=== PATIENT | female | born 1970 | race Hispanic/Latino ===

== ENCOUNTER 2016-12-02 06:12 | Inpatient (IN) | payer BC, OTHER ==
[2016-12-01 10:03] VITALS: BMI 24.9
[2016-12-02] MEDS ORDERED: Lactated Ringer's 1,000 ML IV ONE ×5 (06:53→09:25)
[2016-12-02 07:06] LABS: HEMATOCRIT 37.2 % (34.0-47.0); MEAN CELL VOLUME 92.8 fl (81.0-99.0); MEAN CORPUSCULAR HEMOGLOBIN 31.2 pg (27.0-31.0); MEAN CORPUSCULAR HGB CONC 33.6 g/dL (33.0-37.0); RED CELL DISTRIBUTION WIDTH 13.8 % (11.5-14.5); WHITE BLOOD COUNT 5.6 K/uL (4.8-10.8)
[2016-12-02] MEDS ORDERED: Propofol 10 mg/ml Inj (20 ML) ONE (07:17)
[2016-12-02] MEDS ORDERED: Succinylcholine 200 mg/10 ml Inj IV ONE (07:17)
[2016-12-02] MEDS ORDERED: Rocuronium 10 mg/ml (5 ml) ONE ×2 (07:17→09:36)
[2016-12-02] MEDS ORDERED: ePHEDrine 50 mg/ml Inj ONE (07:24)
[2016-12-02 07:27] LABS: BLOOD UREA NITROGEN 13 mg/dl (7-17); CARBON DIOXIDE 26 mmol/L (22-30); CHLORIDE 104 mmol/L (98-107); GFR AFRICAN-AMERICAN > 60; GLUCOSE,RANDOM 95 mg/dL (65-105); POTASSIUM 3.5 MMOL/L (3.6-5.0); SODIUM 142 mmol/l (132-148)
[2016-12-02] MEDS ORDERED: Midazolam 2 MG/2 ML VIAL ONE (08:26)
[2016-12-02] MEDS: Bupivacaine 0.5% Inj(30mL) ONE ×2 (08:51→09:20)
[2016-12-02] MEDS ORDERED: Desflurane Inhalation Anesthetic Liq (240 ml) ONE (09:35)
[2016-12-02] MEDS ORDERED: Neostigmine Methylsulfate 3mg/3ml Syringe IV ONE (09:36)
[2016-12-02] MEDS ORDERED: Neostigmine Methylsulfate 2 MG/2 ML ML IV ONE (09:36)
[2016-12-02] MEDS ORDERED: Dexamethasone 4 mg/1 ml ONE (09:40)
[2016-12-02] MEDS ORDERED: Sodium Chloride 0.9% 1,000 ML IV ONE (10:00)
[2016-12-02] MEDS ORDERED: Naloxone 0.4 mg/ml Inj (Adult) IVP PRN (13:14)
[2016-12-02] MEDS ORDERED: HYDROmorphone 0.5 mg/0.5 ml ISec ONE (13:28)
[2016-12-02] MEDS: HYDROmorphone 0.5 mg/0.5 ml ISec IVP PRN ×4 (13:28→14:25)
[2016-12-02] MEDS ORDERED: ceFAZolin 1 GM in Sodium Chloride 0.9% 100 ML IVPB SCH (14:15)
[2016-12-02] MEDS: ceFAZolin 1 GM in Sodium Chloride 0.9% 100 ML IVPB SCH (16:52)
[2016-12-03] MEDS: ceFAZolin 1 GM in Sodium Chloride 0.9% 100 ML IVPB SCH ×2 (01:07→10:00)
[2016-12-03] MEDS: Sodium Chloride 0.9% 1,000 ML IV SCH ×2 (06:14→18:56)
[2016-12-03 08:11] LABS: MEAN CELL VOLUME 92.8 fl (81.0-99.0); MEAN CORPUSCULAR HGB CONC 33.4 g/dL (33.0-37.0); RED CELL DISTRIBUTION WIDTH 13.7 % (11.5-14.5)
[2016-12-03 08:12] LABS: BLOOD UREA NITROGEN 8 mg/dl (7-17); CARBON DIOXIDE 27 mmol/L (22-30); CHLORIDE 108 mmol/L (98-107); GFR AFRICAN-AMERICAN > 60; GLUCOSE,RANDOM 92 mg/dL (65-105); POTASSIUM 3.7 MMOL/L (3.6-5.0); SODIUM 140 mmol/l (132-148)
[2016-12-03] MEDS: Multivitamin With Minerals Tab PO SCH (10:15)
[2016-12-03] MEDS: Enoxaparin 40 mg Syringe SC SCH (12:15)
[2016-12-03] MEDS: Oxycodone/Acetaminophen 5/325 mg Tab PO PRN ×2 (15:39→20:25)
--- NOTE | 2016-12-03 19:29 | CP.PCM.PN ---
Subjective - Date & Time of Evaluation Date of Evaluation: 12/03/16 Time of Evaluation: 13:30 - Subjective Subjective: Follow up for Dr. Dubose Patient with at bedside. Complaining of mild headache and dizziness when she sits up. She was out of bed earlier and voided. Denies passing gas, but says her stomach is growling. Denies CP/SOB/dizziness/n/v. Objective - Vital Signs/Intake and Output Vital Signs (last 24 hours): Temp Pulse Resp BP Pulse Ox 99 F 86 20 103/58 L 98 12/03/16 17:00 12/03/16 17:00 12/03/16 17:00 12/03/16 17:00 12/03/16 17:00 Intake and Output: 12/03/16 12/04/16 18:59 06:59 Output Total 1850 Balance -1850 - Medications Medications: Current Medications Enoxaparin Sodium (Lovenox) 40 mg SC Q24H [facility] PRN Reason: Protocol Last Admin: 12/03/16 12:15 Dose: 40 mg Hydromorphone HCl (Dilaudid) 0.5 mg IVP Q4H PRN PRN Reason: Pain, moderate (4-7) Sodium Chloride (Sodium Chloride 0.9%) 1,000 mls @ 80 mls/hr IV .[id number] [facility] Last Admin: 12/03/16 18:56 Dose: 80 mls/hr Multivitamins/Minerals (Therapeutic-M Tab) 1 tab PO DAILY [facility] Last Admin: 12/03/16 10:15 Dose: 1 tab Naloxone HCl (Narcan) 0.1 mg IVP Q2M PRN PRN Reason: Shortness of Breath Ondansetron HCl (Zofran Inj) 4 mg IVP Q8 PRN PRN Reason: Nausea/Vomiting Oxycodone/Acetaminophen (Percocet 5/325 Mg Tab) 2 tab PO Q4 PRN PRN Reason: Pain, Mild (1-3) Stop: 12/06/16 13:37 Last Admin: 12/03/16 15:39 Dose: 2 tab - Labs Labs: 12/03/16 07:46 12/03/16 07:46 - Respiratory Exam Respiratory Exam: NORMAL BREATHING PATTERN - GI/Abdominal Exam GI & Abdominal Exam: Distended, Soft, Tenderness, Hypoactive Bowel Sounds Additional comments: no drainage, no erythema Assessment and Plan (1) Chronic pelvic pain in female Assessment & Plan: POD#1 s/p robotic assisted hysterectomy, resection of bowel adhesions, endometrosis -liquid diet at this time -encourage PO intake -cont IV fluids -labs in am -encourage OOB -venodynes/lovenox for VTE proph -IS -pain medication, will d/c quality audit representative and add prn medications -d/w Dr. Dubose, agrees with above Status: Acute
[2016-12-04] MEDS: Oxycodone/Acetaminophen 5/325 mg Tab PO PRN ×3 (01:19→12:20)
[2016-12-04] MEDS: Sodium Chloride 0.9% 1,000 ML IV SCH (06:23)
[2016-12-04 07:11] LABS: MEAN CORPUSCULAR HEMOGLOBIN 31.8 pg (27.0-31.0); MEAN CORPUSCULAR HGB CONC 34.2 g/dL (33.0-37.0); RED CELL DISTRIBUTION WIDTH 13.5 % (11.5-14.5); WHITE BLOOD COUNT 3.9 K/uL (4.8-10.8)
[2016-12-04 07:16] LABS: BLOOD UREA NITROGEN 6 mg/dl (7-17); CALCIUM 8.1 mg/dL (8.4-10.2); CARBON DIOXIDE 29 mmol/L (22-30); CHLORIDE 108 mmol/L (98-107); GFR AFRICAN-AMERICAN > 60; GLUCOSE,RANDOM 90 mg/dL (65-105); POTASSIUM 3.6 MMOL/L (3.6-5.0); SODIUM 143 mmol/l (132-148)
[2016-12-04] MEDS: Multivitamin With Minerals Tab PO SCH (09:28)
--- NOTE | 2016-12-04 09:37 | CP.PCM.PN ---
Subjective - Date & Time of Evaluation Date of Evaluation: 12/04/16 Time of Evaluation: 09:34 - Subjective Subjective: pod # 2 taking po positive flatus Objective - Vital Signs/Intake and Output Vital Signs (last 24 hours): Temp Pulse Resp BP Pulse Ox 99.4 F 76 18 102/63 97 12/04/16 05:00 12/04/16 05:00 12/04/16 05:00 12/04/16 05:00 12/04/16 05:00 - Medications Medications: Current Medications Enoxaparin Sodium (Lovenox) 40 mg SC Q24H [facility] PRN Reason: Protocol Last Admin: 12/03/16 12:15 Dose: 40 mg Hydromorphone HCl (Dilaudid) 0.5 mg IVP Q4H PRN PRN Reason: Pain, moderate (4-7) Sodium Chloride (Sodium Chloride 0.9%) 1,000 mls @ 80 mls/hr IV .[id number] [facility] Last Admin: 12/04/16 06:23 Dose: 80 mls/hr Multivitamins/Minerals (Therapeutic-M Tab) 1 tab PO DAILY [facility] Last Admin: 12/04/16 09:28 Dose: 1 tab Naloxone HCl (Narcan) 0.1 mg IVP Q2M PRN PRN Reason: Shortness of Breath Ondansetron HCl (Zofran Inj) 4 mg IVP Q8 PRN PRN Reason: Nausea/Vomiting Oxycodone/Acetaminophen (Percocet 5/325 Mg Tab) 2 tab PO Q4 PRN PRN Reason: Pain, Mild (1-3) Stop: 12/06/16 13:37 Last Admin: 12/04/16 06:28 Dose: 2 tab - Labs Labs: 12/04/16 05:30 12/04/16 05:30 - GI/Abdominal Exam GI & Abdominal Exam: Soft, Normal Bowel Sounds Assessment and Plan - Assessment and Plan (Free Text) Assessment: doing well post op day 2 Plan: will discharge home
[2016-12-04 10:12] VITALS: BP 105/66; PULSE 87; RESP 16; TEMP 98.2; O2SAT 98
[2016-12-04] MEDS: Enoxaparin 40 mg Syringe SC SCH (12:22)
--- NOTE | 2016-12-07 22:24 | OP ---
PROCEDURE DATE: 12/02/2016 SURGEON: Hadley Dubose MD. ABRADING MACHINE TENDER: Manuel Jefferson MD. PREOPERATIVE DIAGNOSES: Pelvic pain, dysmenorrhea, dyspareunia, bladder pain, and adenomyosis of the uterus. POSTOPERATIVE DIAGNOSES: Pelvic pain, dysmenorrhea, dyspareunia, bladder pain, adenomyosis of the uterus, stage IV endometriosis of the pelvis, and extensive pelvic adhesions. PROCEDURE PERFORMED: Cystoscopy with bilateral ureteral catheterization and injection of dye, robotic da Ally laparoscopy, excision of endometriosis, bilateral ureterolysis, robotic total hysterectomy, and left salpingectomy. TYPE OF ANESTHESIA: Endotracheal. COMPLICATIONS: None. SPECIMEN: Multiple samples containing the uterus, the tube, and endometriosis sent to Pathology. Dr. Jefferson also will dictate separately the extensive lysis of adhesions and excision of rectal endometriosis performed on the patient. INDICATION FOR THE PROCEDURE: The patient is a 46-year-old with a long history of severe pelvic pain and known endometriosis. She had a prior history of abdominal surgery for removal of an ovary and she was known to have a frozen pelvis, which was confirmed by multiple examinations as well as my examination in the visit as well as ultrasound. Due to the complex nature of the surgery, the patient was advised with regards to the risks and benefits of the operation and with the necessity to place ureteral stents and using fluorescence to identify the ureters throughout this complex procedure. The patient was advised also with risks with regards to adhesions and she signed the consent and was taken to the OR. DESCRIPTION OF THE PROCEDURE: After adequate anesthesia was obtained, patient was placed in the dorsal lithotomy position. She was prepped and draped, the surgeons were gowned and gloved. The patient was padded all over to prevent any form of pressure in any area. At this point, a timeout was taken according to hospital policy and attention was on the vaginal area. Under direct visualization, a cystoscope was inserted into the bladder. A pancystoscopy was performed and the attention was paid to both ureteral orifices, which were in the normal anatomical position. The left ureteral orifice was then catheterized with a 5-Finnish open ended ureteral catheter. A solution of IC-Green was then injected for a total of 4 mL into the left ureter, after ureteral catheter was advanced into the distal ureter. The ureteral catheter was then removed. Attention was then paid to the right ureteral orifice, at which point a ureteral catheter was advanced to the distal level of the right ureter. An additional 5 mL of IC-Green were injected into the right ureter. The ureteral catheter was then removed. The bladder was inspected and noted to be free of tumor, stones, or bleeding sources. The cystoscope was then removed and a 16-Finnish Field catheter was placed. At this point, attention was in the vaginal area where a V-care was placed inside the uterus and the balloon inflated. Surgeons were then regowned and regloved and attention was on the abdomen. At this point, the abdominal cavity was entered in the umbilical area, utilizing an open laparoscopic technique. Once the abdominal cavity was entered in a blunt fashion, a blunt trochar was placed. The abdomen was insufflated and the pelvis was visualized. There appeared to be massive adhesions involving the uterus and the left ovary on the left hand side. The anterior part of the uterus appeared to be free of adhesions or endometriosis. The patient had evidence of extensive fibrotic endometriosis type disease and the uterus was in the retroversal flexed position. At this point, under direct visualization, 3 additional ports were placed, left lower quadrant, left mid quadrant, right mid quadrant, and right upper quadrant. At this point, the da Ally robot was docked and the procedure was started. Given the extensiveness of the adhesion, Dr. Manuel Jefferson from General Surgery was called in and he was asked to perform a lysis of adhesion, which he performed, this was quite laborious and involved excision of endometriosis as well as repair of an enterotomy. Once this part was performed, I proceeded with the excision. The first part of the procedure involved freeing both ureters on both sides, although they were barely visible utilizing IC Green, they were within the range of the area of excision for the hysterectomy. Attention was first on the right hand side, where the right ovary was absent and the ureter was completely folded into a thick area of adhesion in the right hand side; therefore, after identifying the ureter utilizing fluorescein, the retroperitoneum was entered and a progressive dissection was performed, dissecting the ureter and lateralizing it out of the way while the peritoneum was medialized. At this point, attention was on the left hand side where the left ovary was elevated and dissected from the left pelvic sidewall. The left ureter was identified and again the retroperitoneum was entered and a progressive dissection was performed liberating the ureter and lysing it out and lateralizing away from harm. Once this was done, attention was on the left hand side where the round ligament on the left hand side was coagulated and cut and a bladder flap was started and it was developed across proceeding from left to right. On the right hand side, also the round ligament was coagulated and cut and again the areolar space anteriorly was dissected and the bladder flap was created. The bladder was dissected off anteriorly and then attention was on the left hand side. A progressive skeletonization was performed on the uterine vessels until they were identified, bipolar coagulated and cut. Attention was then on the right hand side where after a laborious dissection, the uterine vessels were identified, bipolar coagulation was used and these vessels were then also progressively cut. At this point, the uterus appeared to be more free and it was further skeletonized and the vagina was then entered anteriorly by progressively incising the vaginal wall at the level of the cervix, right on top of the V-care instrument. A circumferential incision was then made on the vagina utilizing monopolar current and the uterus was completely detached. The uterus was then removed through the vagina without much difficulty. At this point, the left fallopian tube was also excised by elevating it and cutting along the mesentery of the left tube. The left ovary appeared to be intact. At this point, he was checked for hemostasis that appeared to be excellent and the pelvis was irrigated. The vaginal cuff was then closed with 2 sutures of V-Loc starting at each angle and crossing over in the midline. Once the vaginal cuff was closed adequately, it was checked for hemostasis and that appeared to be excellent. Both ureters where inspected, appearing to be in good condition utilizing fluorescein technology. At this point, the pelvis was abundantly irrigated. The bowel also was again irrigated and the repair appeared to be in excellent condition. The da Ally robot was then undocked and the abdomen desufflated and the instruments removed. The incisions were closed in layers with 0 PDS for the fascia and 4-0 Monocryl for the skin. At the end of the procedure, all instruments and tapes counts were correct and the patient tolerated the procedure well and was taken to recovery room in excellent condition. Please note this was a very laborious and lengthy procedure with above average difficulty. Hadley Dubose MD [facility] # [id number]
--- NOTE | 2016-12-14 15:04 | PCM.OP ---
Operative Report - Operative Report Date of Surgery/Procedure: 12/02/16 Time of Surgery/Procedure: 08:00 Surgeon: Dr. Manuel Jefferson [employer] Machine Operator: Dr. Hadley Dubose Anesthesia/Sedation: Dr. Stewart/General Pre-Operative Diagnosis: Abdominal pain and endometriosis Post-Operative Diagnosis: same with perirectal involvement Indication for Surgery: abdominal pain and endometriosis Operative Findings: same Procedure/Operation Description: 1-Excision perirectal endometriosis. Breif History: This is a 46 year old woman already bought to the operating room by Dr. Dubose for abdominal pain and endometriosis when he discovered involvement of the rectum. Intraoperative consultation by general surgery was requested. Desciption of the Procedure: The patient had already been brought to the operating room and the robotic procedure was initiated (separate dictation Dr. Dubose). Upon consultation, after taking control of the robotic operation the left colon was mobilized and the diseased area of rectum was evaluated. With bliunt and sharp dissection, with the aid of electrocautery the lesion was excised enpbloc after circumferential dissection. The lesion was excised and sent to pathology separately. The rectum was then repaired with interrupted 3-0 vicryl sutures. The redctum was evaluated and hemostasis was deemed adeqaute. The operation was then turned back to Dr. Dubose (separate dictation Dr. Dubose) . Estimated Blood Loss: 5 cc Complications: none Discharge & Condition: stable
== END 2016-12-04 15:36 | disposition home or self-care (01) | DRG 743 ==
LOC: H.OPSURG 06:12 → H.PEDS 14:08
PROVIDERS: ADMIT Obstetrics & Gynecology Reproductive Endocrinology; ATTEND Obstetrics & Gynecology Reproductive Endocrinology
PROC: 0UT60ZZ Resection of Left Fallopian Tube, Open Approach (ICD-10-PCS; 2016-12-02)
PROC: 0UTC7ZZ Resection of Cervix, Via Natural or Artificial Opening (ICD-10-PCS; 2016-12-02)
PROC: 0DBP0ZZ Excision of Rectum, Open Approach (ICD-10-PCS; 2016-12-02)
PROC: 0UT9FZZ Resection of Uterus, Via Natural or Artificial Opening With Percutaneous Endoscopic Assistance (ICD-10-PCS; 2016-12-02)
PROC: 0DNW0ZZ Release Peritoneum, Open Approach (ICD-10-PCS; 2016-12-02)
PROC: 8E0W0CZ Robotic Assisted Procedure of Trunk Region, Open Approach (ICD-10-PCS; 2016-12-02)
PROC: 0TJB8ZZ Inspection of Bladder, Via Natural or Artificial Opening Endoscopic (ICD-10-PCS; principal; 2016-12-02 08:30)
PROC: 0UB90ZZ Excision of Uterus, Open Approach (ICD-10-PCS; 2016-12-02 08:30)
PROC: 0DBW0ZZ Excision of Peritoneum, Open Approach (ICD-10-PCS; 2016-12-02 08:30)
DX: N80.3 Endometriosis of pelvic peritoneum (principal); N73.6 Female pelvic peritoneal adhesions (postinfective); N80.0 Endometriosis of uterus; N94.6 Dysmenorrhea, unspecified; N94.10 Unspecified dyspareunia; N80.5 Endometriosis of intestine